=== PATIENT | female | born 1935 | race Caucasian/White ===

== ENCOUNTER 2016-06-25 13:02 | Inpatient (IN) | payer MEDICARE ==
[~2016-06-25] VITALS: Ht 167.6 cm; Wt 63.5 kg
[~2016-06-25 13:02] MED LIST: ASCO500T10 PO; ATOR40TA PO; FOLI1TAB16 PO; FURO20TA4 PO; GABA-534 PO; IVAB5TAB PO; LEFL20TA18 PO; METH2.5T PO; NORT50CA PO; PANT20TA3 PO; PRED5TAB PO; SPIR25TA4 PO; VALS80TA2 PO
[2016-06-25] MEDS ORDERED: ACETAMINOPHEN ES 500 MG TABLET PO ONE (13:30)
[2016-06-25] MEDS ORDERED: IV NS 0.9% 1,000 ML BAG IV ONE (13:30)
[2016-06-25] MEDS ORDERED: ACETAMINOPHEN ES 500 MG TABLET ONE (13:40)
[2016-06-25] MEDS ORDERED: IV NS 0.9% 2,000 ML ONE (13:41)
[2016-06-25] MEDS ORDERED: IV SET PRIMARY 1 EA INFUS.SET MC ONE (13:41)
[2016-06-25 13:46] LABS: BASOPHILS % (AUTO) 0.1 % (0.0-2.0); DIFF TOTAL % 100 %; EOSINOPHILS % (AUTO) 0.1 % (0.0-6.0); HEMATOCRIT 30 % (33-45); HEMOGLOBIN 10.1 g/dL (11.5-14.8); LYMPHOCYTES # (AUTO) 0.7 /CMM (0.8-4.8); MEAN CORPUSCULAR HEMOGLOBIN 34 PG (26.0-33.0); MEAN CORPUSCULAR HGB CONC 34 g/dl (31.0-36.0); MEAN CORPUSCULAR VOLUME 100 fL (82-100); MONOCYTES % (AUTO) 10.7 % (2.0-12.0); NEUTROPHILS # (AUTO) 7.4 /CMM (1.8-8.9); NEUTROPHILS % (AUTO) 81.1 % (43.0-81.0); PLATELET COUNT (AUTO) 88 /CMM (150-450); RED BLOOD CELL COUNT(AUTO) 3.02 MIL/uL (4.0-5.2); WHITE BLOOD COUNT (AUTO) 9.1 K/uL (4.3-11.0)
[2016-06-25 14:05] LABS: LACTIC ACID 0.8 mmol/L (0.4-2.0)
[2016-06-25 14:06] LABS: TROPONIN I 0.196 ng/mL (0.00-0.056)
[2016-06-25 14:29] LABS: INR 1.05 (0.87-1.13); PROTHROMBIN TIME 11.4 SECS (9.5-12.7)
[2016-06-25 15:01] LABS: ADD UA MICROSCOPIC NO; KETONES,URINE NEGATIVE (NEGATIVE); LEUKOCYTE ESTERASE ,URINE NEGATIVE (NEGATIVE)
[2016-06-25 15:14] LABS: CALCIUM, SERUM 8.4 mg/dL (8.5-10.1); POTASSIUM 3.4 mmol/L (3.5-5.1)
[2016-06-25 15:16] LABS: ANISOCYTOSIS 1+; BAND % (MANUAL) 8 % (0.0-5.0); LYMPHOCYTES % (MANUAL) 9 % (16-48); PLATELET ESTIMATE DECREASED; POIKILOCYTOSIS 1+
[2016-06-25 15:17] LABS: BURR CELLS 1+; OVALOCYTES 1+
[2016-06-25 15:19] LABS: ALBUMIN 3.2 g/dL (3.4-5.0); BILIRUBIN,DIRECT 0.2 mg/dL (0.0-0.2); BILIRUBIN,TOTAL 0.5 mg/dL (0.2-1.0); INDIRECT BILIRUBIN 0.3 mg/dL (0.0-1.1); TOTAL PROTEIN, SERUM 6.8 g/dL (6.4-8.2)
[2016-06-25 15:30] VITALS: BP 124/70
[2016-06-25] MEDS ORDERED: FERR-58 PO (16:51)
[2016-06-25] MEDS ORDERED: ALBU18HF2 INH (16:53)
[2016-06-25] MEDS ORDERED: LEVOFLOXACIN 750 MG /D5W 150ML 150 ML IV ONE ×2 (16:58→17:00)
[2016-06-25] MEDS ORDERED: IV SET PRIMARY PUMP SET 1 EA INFUS.SET MC ONE ×2 (16:59→18:29)
[2016-06-25] MEDS ORDERED: ACETAMINOPHEN 325 MG TABLET PO PRN (18:00)
[2016-06-25] MEDS ORDERED: MAG HYDROX/AL HYDROX/SIMETH 30 ML UDC PO PRN (18:00)
[2016-06-25] MEDS ORDERED: Z GUARD REMEDY 2 OZ OINT TP PRN (18:00)
[2016-06-25] MEDS: predniSONE 5 MG TABLET PO SCH (18:00)
[2016-06-25] MEDS ORDERED: MAGNESIUM HYDROXIDE 30 ML UDC PO PRN (18:00)
[2016-06-25] MEDS ORDERED: ONDANSETRON HCL/PF 4 MG/2 ML VIAL IVP PRN (18:00)
[2016-06-25] MEDS: ATORVASTATIN 40 MG TABLET PO SCH (18:00)
[2016-06-25] MEDS ORDERED: ZOLPIDEM TARTRATE 5 MG TABLET PO PRN (18:00)
[2016-06-25] MEDS ORDERED: HYDROCODONE/APAP 5/325MG 1 EACH TABLET PO PRN (18:00)
[2016-06-25] MEDS ORDERED: SECONDARY IV SET 1 EA INFUS.SET MC ONE (18:29)
[2016-06-25] MEDS: IV NS 0.9% 1,000 ML IV PRN (18:32)
[2016-06-25] MEDS: FOLIC ACID 1 MG TABLET PO SCH (18:35)
[2016-06-25] MEDS: PANTOPRAZOLE 40 MG VIAL IV SCH (18:35)
[2016-06-25] MEDS: FERROUS SULFATE (325 MG) 325 MG/TAB TABLET PO SCH (18:35)
[2016-06-25] MEDS: ASCORBIC ACID 500 MG TABLET PO SCH (18:35)
[2016-06-25 19:49] VITALS: BP 106/60
[2016-06-25] MEDS ORDERED: LEFLUNOMIDE 20 MG TABLET PO SCH (21:00)
[2016-06-25] MEDS: NORTRIPTYLINE HCL 25 MG CAPSULE PO SCH (21:45)
[2016-06-25] MEDS: GABAPENTIN 300 MG CAPSULE PO SCH (21:45)
[2016-06-26 04:00] VITALS: BP 147/76
[2016-06-26 06:55] VITALS: BP 122/66
[2016-06-26 07:08] LABS: BASOPHILS % (AUTO) 0.3 % (0.0-2.0); DIFF TOTAL % 100 %; EOSINOPHILS % (AUTO) 0.6 % (0.0-6.0); HEMATOCRIT 29 % (33-45); HEMOGLOBIN 9.9 g/dL (11.5-14.8); LYMPHOCYTES # (AUTO) 1.1 /CMM (0.8-4.8); LYMPHOCYTES % (AUTO) 13.9 % (20.0-44.0); MEAN CORPUSCULAR HEMOGLOBIN 34 PG (26.0-33.0); MEAN CORPUSCULAR HGB CONC 34 g/dl (31.0-36.0); MEAN CORPUSCULAR VOLUME 101 fL (82-100); MONOCYTES # (AUTO) 0.8 /CMM (0.1-1.30); MONOCYTES % (AUTO) 9.9 % (2.0-12.0); NEUTROPHILS # (AUTO) 5.7 /CMM (1.8-8.9); NEUTROPHILS % (AUTO) 75.3 % (43.0-81.0); PLATELET COUNT (AUTO) 86 /CMM (150-450); RED BLOOD CELL COUNT(AUTO) 2.91 MIL/uL (4.0-5.2); WHITE BLOOD COUNT (AUTO) 7.6 K/uL (4.3-11.0)
[2016-06-26 07:34] LABS: ALBUMIN 2.7 g/dL (3.4-5.0); BILIRUBIN,TOTAL 0.4 mg/dL (0.2-1.0); CREATININE 0.9 mg/dL (0.6-1.3); PHOSPHORUS 2.2 mg/dL (2.5-4.9); POTASSIUM 3.4 mmol/L (3.5-5.1)
[2016-06-26 08:00] VITALS: BP 137/83
[2016-06-26 08:10] LABS: ANISOCYTOSIS 1+; BAND % (MANUAL) 2 % (0.0-5.0); EOSINOPHILS % (MANUAL) 1 % (0-4); LYMPHOCYTES % (MANUAL) 17 % (16-48); PLATELET ESTIMATE DECREASED
[2016-06-26] MEDS: LEFLUNOMIDE 10 MG TABLET PO SCH (08:41)
[2016-06-26] MEDS: ATORVASTATIN 40 MG TABLET PO SCH (08:41)
[2016-06-26] MEDS: FOLIC ACID 1 MG TABLET PO SCH (08:41)
[2016-06-26] MEDS: ASCORBIC ACID 500 MG TABLET PO SCH (08:41)
[2016-06-26] MEDS: FERROUS SULFATE (325 MG) 325 MG/TAB TABLET PO SCH (08:41)
[2016-06-26] MEDS: PANTOPRAZOLE 40 MG VIAL IV SCH (08:42)
[2016-06-26] MEDS: predniSONE 5 MG TABLET PO SCH (08:45)
[2016-06-26] MEDS ORDERED: Z GUARD REMEDY 2 OZ OINT TP PRN (09:00)
[2016-06-26] MEDS ORDERED: SECONDARY IV SET 1 EA INFUS.SET MC ONE (09:11)
[2016-06-26] MEDS: methylPREDNISolone SOD SUCC 40 MG/ML VIAL IV SCH ×3 (09:16→16:53)
[2016-06-26] MEDS: Magnesium 1GM/D5W 100ML PREMIX 100 ML IV SCH ×2 (09:16→10:18)
[2016-06-26] MEDS: POTASSIUM CHLORIDE 20 MEQ TAB.PRT.SR PO SCH ×2 (09:16→10:17)
[2016-06-26] MEDS: Z GUARD REMEDY 2 OZ OINT TP SCH ×2 (10:17→16:57)
[2016-06-26 16:00] VITALS: BP 131/73
[2016-06-26] MEDS ORDERED: K PHOS NEUTRAL 250 MG TABLET PO ONE (16:30)
[2016-06-26] MEDS: CORLANOR 5 MG PO SCH (16:54)
[2016-06-26 20:00] VITALS: BP 135/80
[2016-06-26 20:46] VITALS: BP 135/80
[2016-06-26] MEDS: NORTRIPTYLINE HCL 25 MG CAPSULE PO SCH (21:34)
[2016-06-26] MEDS: GABAPENTIN 300 MG CAPSULE PO SCH (21:34)
[2016-06-27 07:09] LABS: BASOPHILS % (AUTO) 0.1 % (0.0-2.0); DIFF TOTAL % 100 %; HEMATOCRIT 33 % (33-45); LYMPHOCYTES # (AUTO) 0.8 /CMM (0.8-4.8); LYMPHOCYTES % (AUTO) 10.3 % (20.0-44.0); MEAN CORPUSCULAR HEMOGLOBIN 33 PG (26.0-33.0); MEAN CORPUSCULAR HGB CONC 33 g/dl (31.0-36.0); MEAN CORPUSCULAR VOLUME 101 fL (82-100); MONOCYTES # (AUTO) 0.7 /CMM (0.1-1.30); MONOCYTES % (AUTO) 9.3 % (2.0-12.0); NEUTROPHILS # (AUTO) 6.5 /CMM (1.8-8.9); NEUTROPHILS % (AUTO) 80.3 % (43.0-81.0); PLATELET COUNT (AUTO) 104 /CMM (150-450); RED BLOOD CELL COUNT(AUTO) 3.31 MIL/uL (4.0-5.2); WHITE BLOOD COUNT (AUTO) 8.1 K/uL (4.3-11.0)
[2016-06-27 07:10] LABS: TROPONIN I 0.069 ng/mL (0.00-0.056)
[2016-06-27 07:14] LABS: ALBUMIN 2.8 g/dL (3.4-5.0); BILIRUBIN,TOTAL 0.4 mg/dL (0.2-1.0); CALCIUM, SERUM 8.2 mg/dL (8.5-10.1); CREATININE 0.8 mg/dL (0.6-1.3); PHOSPHORUS 3.1 mg/dL (2.5-4.9); POTASSIUM 4.2 mmol/L (3.5-5.1); TOTAL PROTEIN, SERUM 6.5 g/dL (6.4-8.2)
[2016-06-27 08:00] VITALS: BP 119/68
[2016-06-27] MEDS: PANTOPRAZOLE 40 MG VIAL IV SCH (08:10)
[2016-06-27] MEDS: FERROUS SULFATE (325 MG) 325 MG/TAB TABLET PO SCH (08:11)
[2016-06-27] MEDS: ATORVASTATIN 40 MG TABLET PO SCH (08:11)
[2016-06-27] MEDS: ASCORBIC ACID 500 MG TABLET PO SCH (08:11)
[2016-06-27] MEDS: FOLIC ACID 1 MG TABLET PO SCH (08:12)
[2016-06-27] MEDS: LEFLUNOMIDE 10 MG TABLET PO SCH (08:12)
[2016-06-27] MEDS: methylPREDNISolone SOD SUCC 40 MG/ML VIAL IV SCH ×2 (08:12→12:35)
[2016-06-27] MEDS: Z GUARD REMEDY 2 OZ OINT TP SCH ×2 (08:17→16:36)
[2016-06-27] MEDS: CORLANOR 5 MG PO SCH (08:34)
[2016-06-27] MEDS ORDERED: FUROSEMIDE 20 MG TABLET PO SCH (09:00)
[2016-06-27 16:00] VITALS: BP 132/67
[2016-06-27] MEDS ORDERED: SECONDARY IV SET 1 EA INFUS.SET MC ONE (16:30)
[2016-06-27] MEDS ORDERED: LEVOFLOXACIN 750 MG /D5W 150ML 750 MG in PREMIX 1 EA IV SCH (17:00)
[2016-06-27] MEDS ORDERED: METHOTREXATE SODIUM (2.5MG) 2.5 MG TABLET PO SCH (18:00)
[2016-06-27 20:00] VITALS: BP 131/62
[2016-06-27 20:54] VITALS: BP 131/62
[2016-06-27] MEDS: IV NS 0.9% 1,000 ML IV PRN (21:45)
[2016-06-27] MEDS: NORTRIPTYLINE HCL 25 MG CAPSULE PO SCH (21:45)
[2016-06-27] MEDS: GABAPENTIN 300 MG CAPSULE PO SCH (21:45)
[2016-06-28 07:09] LABS: DIFF TOTAL % 100 %; HEMATOCRIT 31 % (33-45); HEMOGLOBIN 10.3 g/dL (11.5-14.8); LYMPHOCYTES # (AUTO) 0.9 /CMM (0.8-4.8); LYMPHOCYTES % (AUTO) 9.1 % (20.0-44.0); MEAN CORPUSCULAR HEMOGLOBIN 34 PG (26.0-33.0); MEAN CORPUSCULAR HGB CONC 34 g/dl (31.0-36.0); MEAN CORPUSCULAR VOLUME 101 fL (82-100); MONOCYTES # (AUTO) 0.9 /CMM (0.1-1.30); MONOCYTES % (AUTO) 9.2 % (2.0-12.0); NEUTROPHILS # (AUTO) 8.3 /CMM (1.8-8.9); NEUTROPHILS % (AUTO) 81.7 % (43.0-81.0); PLATELET COUNT (AUTO) 113 /CMM (150-450); RED BLOOD CELL COUNT(AUTO) 3.03 MIL/uL (4.0-5.2); WHITE BLOOD COUNT (AUTO) 10.2 K/uL (4.3-11.0)
[2016-06-28 07:25] LABS: CALCIUM, SERUM 7.6 mg/dL (8.5-10.1); CREATININE 0.8 mg/dL (0.6-1.3); PHOSPHORUS 2.7 mg/dL (2.5-4.9); POTASSIUM 4.3 mmol/L (3.5-5.1)
[2016-06-28 08:00] VITALS: BP 129/78
[2016-06-28] MEDS ORDERED: methylPREDNISolone SOD SUCC 40 MG/ML VIAL IV SCH (09:00)
[2016-06-28] MEDS: FERROUS SULFATE (325 MG) 325 MG/TAB TABLET PO SCH (10:32)
[2016-06-28] MEDS: ATORVASTATIN 40 MG TABLET PO SCH (10:32)
[2016-06-28] MEDS: LEFLUNOMIDE 10 MG TABLET PO SCH (10:34)
[2016-06-28] MEDS: FOLIC ACID 1 MG TABLET PO SCH (10:34)
[2016-06-28] MEDS: ASCORBIC ACID 500 MG TABLET PO SCH (10:34)
[2016-06-28] MEDS: Z GUARD REMEDY 2 OZ OINT TP SCH (10:35)
[2016-06-28] MEDS ORDERED: LEVO750T21 PO (10:58)
[2016-06-28] MEDS ORDERED: PRED10TA PO (11:01)
[2016-06-28] MEDS ORDERED: PRED50TA PO (11:01)
[2016-06-28] MEDS ORDERED: PRED20TA GT (11:01)
[2016-06-28] MEDS: CORLANOR 5 MG PO SCH (11:53)
[2016-06-28 16:00] VITALS: BP 123/63
== END 2016-06-28 16:00 | disposition home health service (06) | DRG 280 ==
LOC: ER 13:03 → TELE 17:10 → MED 06-26 09:45
PROVIDERS: ADMIT Internal Medicine; ATTEND Internal Medicine
DX: I21.4 Non-ST elevation (NSTEMI) myocardial infarction (principal); G93.40 Encephalopathy, unspecified; J44.0 Chronic obstructive pulmonary disease with (acute) lower respiratory infection; J20.9 Acute bronchitis, unspecified; I50.9 Heart failure, unspecified; E78.5 Hyperlipidemia, unspecified; I11.0 Hypertensive heart disease with heart failure; M06.9 Rheumatoid arthritis, unspecified; Z95.2 Presence of prosthetic heart valve; E78.00 Pure hypercholesterolemia, unspecified; E83.42 Hypomagnesemia; E87.6 Hypokalemia; I44.7 Left bundle-branch block, unspecified
CPT/HCPCS: 36415; 71010-TC; 80048-TC; 80053-TC; 80061-TC; 80076-TC; 81000-TC; 83605-TC; 83735-TC; 84100-TC; 84484-TC; 85025-TC; 85730-TC; 87040-TC; 87081-TC; 87400; 97001-TC; A4216; A4606; C9113; J1956; J2920; J3475; J7030; J7512; J8610; Z7610

== ENCOUNTER 2017-02-09 11:52 | Inpatient (IN) | payer MEDICARE ==
[~2017-02-09] VITALS: Ht 162.6 cm; Wt 52.6 kg
[~2017-02-09 11:52] MED LIST changes: +ALBU18HF2 INH; +FERR-58 PO; +LEVO750T21 PO; +PRED10TA PO; +PRED20TA GT; +PRED50TA PO; -VALS80TA2 PO
--- NOTE | 2017-02-09 11:55 | NUR ---
BIB RA 102 FROM HOME,C/O DIZZINESS,VOMITING UPON ARRIVAL, TO ER BED 14,MONITORED.
[2017-02-09] MEDS ORDERED: ONDANSETRON HCL/PF 4 MG/2 ML VIAL ONE (12:03)
[2017-02-09 12:09] LABS: BASOPHILS # (AUTO) 0.1 /CMM (0.0-0.2); EOSINOPHILS % (AUTO) 0.6 % (0.0-6.0); HEMATOCRIT 30 % (33-45); HEMOGLOBIN 10.2 g/dL (11.5-14.8); LYMPHOCYTES # (AUTO) 1.8 /CMM (0.8-4.8); LYMPHOCYTES % (AUTO) 28.8 % (20.0-44.0); MEAN CORPUSCULAR HEMOGLOBIN 34 PG (26.0-33.0); MEAN CORPUSCULAR HGB CONC 34 g/dl (31.0-36.0); MEAN CORPUSCULAR VOLUME 100 fL (82-100); MONOCYTES # (AUTO) 0.4 /CMM (0.1-1.30); NEUTROPHILS # (AUTO) 3.9 /CMM (1.8-8.9); NEUTROPHILS % (AUTO) 63.6 % (43.0-81.0); PLATELET COUNT (AUTO) 99 /CMM (150-450); RDW COEFFICIENT OF VARIATION 14.6 (11.5-15.0); RED BLOOD CELL COUNT(AUTO) 3.03 MIL/uL (4.0-5.2); WHITE BLOOD COUNT (AUTO) 6.2 K/uL (4.3-11.0)
--- NOTE | 2017-02-09 12:10 | NUR ---
SEEN BY DR AVERY,JOSE ESTABLISHED,BLOOD DRAWN FOR LABS,MEDICATED ORDERED,EKG DONE
[2017-02-09 12:19] LABS: CALCIUM, SERUM 8.1 mg/dL (8.5-10.1); CARBON DIOXIDE 26 mmol/L (21-32); CHLORIDE 104 mmol/L (98-107); GLUCOSE 153 mg/dL (74-106); SODIUM SERUM 138 mmol/L (136-145); UREA NITROGEN, BLOOD 15 mg/dL (7-18)
--- NOTE | 2017-02-09 12:20 | NUR ---
RADIOLOGY AT BEDSIDE FOR CHEST XRAY.
[2017-02-09 12:23] LABS: PROTHROMBIN TIME 10.4 SECS (9.5-12.7)
[2017-02-09 12:25] LABS: ALANINE AMINOTRANSFERASE 17 U/L (12-78); ALBUMIN 3.1 g/dL (3.4-5.0); ALKALINE PHOSPHATASE 37 U/L (46-116); ASPARTATE AMINOTRANSFERASE 26 U/L (15-37); BILIRUBIN,DIRECT 0.1 mg/dL (0.0-0.2); BILIRUBIN,TOTAL 0.4 mg/dL (0.2-1.0); TOTAL PROTEIN, SERUM 6.6 g/dL (6.4-8.2)
[2017-02-09] MEDS ORDERED: CA C1TAB95 PO (12:26)
[2017-02-09] MEDS ORDERED: MULT-1168 PO (12:26)
[2017-02-09 12:27] LABS: TROPONIN I 0.352 ng/mL (0.00-0.056)
[2017-02-09] MEDS ORDERED: IV NS 0.9% 500 ML BAG IV ONE (12:30)
[2017-02-09] MEDS ORDERED: ONDANSETRON HCL/PF 4 MG/2 ML VIAL IVP ONE (12:30)
--- NOTE | 2017-02-09 12:50 | NUR ---
PAGED EPIC CARDIOLOGY
[2017-02-09] MEDS ORDERED: CLOPIDOGREL BISULFATE 75 MG TABLET PO ONE (13:00)
[2017-02-09] MEDS ORDERED: CLOPIDOGREL BISULFATE 75 MG TABLET ONE (13:08)
[2017-02-09 13:28] LABS: EOSINOPHILS % (MANUAL) 1 % (0-4); LYMPHOCYTES % (MANUAL) 28 % (16-48); MONOCYTES % (MANUAL) 5 % (0-11.0); NEUTROPHILS % (MANUAL) 66 (42-76)
--- NOTE | 2017-02-09 14:10 | NUR ---
REPORT GIVEN TO PT AWAITING TRANSFER TO FLOOR.
--- NOTE | 2017-02-09 14:30 | NUR ---
RN NOTES ADMITTED AN 81 Y/O F FROM ER D/T SYNCOPE EPISODE, TRANSPORTED VIA STRETCHER ACCOMPANIED BY RN AND COUNTER TACKER. PT IS AWAKE ALERT ORIENTEDX3 ABLE TO COMMUNICATE NEEDS. VS TAKEN AND RECORDED. PT NOTED LOW O2 SAT ON RA, SATING 91%, PLACED PT ON O2@2LPM VIA NC. TELEBOX ATTACHED. NOTED SR WITH BBB ON TELE MONITOR. BODY CHECK DONE, NO MAJOR SKIN ISSUES, NOTED WITH SACRAL REDNESS. PHOTO TAKEN AND FILED ON CHART. DENIES ANY PAIN/DISCOMFORT. PT AMBULATORY WITH RENE WASHINGTON. ASSISTED PT TO BATHROOM WITH FWW. AT BEDSIDE, ORIENTED PT TO UNIT AND CALL LIGHT USE. SAFETY MAINTAINED. ENCOURAGED TO CALL FOR ASSISTANCE NEEDED. DR ROSARIO MADE AWARE OF ADMISSION. CALL LIGHT WITHIN REACH.
[2017-02-09 15:10] VITALS: BP 135/53
[2017-02-09 16:00] VITALS: BP 131/57
[2017-02-09] MEDS ORDERED: CORLANOR PO SCH (16:00)
[2017-02-09 16:15] LABS: THYROID STIMULATING HORMONE 0.713 uIU/mL (0.358-3.74)
[2017-02-09 17:20] LABS: MAGNESIUM 2.1 mg/dL (1.8-2.4)
[2017-02-09] MEDS: NORTRIPTYLINE HCL 25 MG CAPSULE PO SCH (17:42)
[2017-02-09] MEDS: CALCIUM CARB 600MG /VIT D 1 EACH TABLET PO SCH (17:42)
--- NOTE | 2017-02-09 18:10 | NUR ---
RN NOTES SPOKE WITH JONE, INFORMED TO BRING PATIENT MEDS. PER HE WILL BRING IT THIERNO MORNING.
--- NOTE | 2017-02-09 19:30 | NUR ---
RN OPENING NOTES: RECEIVED PT IN BED AWAKE ALOX4, VERBALLY RESPONSIVE. ON O2 VIA NC AT 2LPM. SR ON MONITOR WITH BBB AND 1ST DEGREE AVB HR AT 73 BPM. IV ACCESS ON LEFT AC INTACT AND PATNET, IVF INFUSING. CONTINENT. STEADY WITH FWW. SAFETY MEASURES ENSURED. FALL PREVENTIONS ENSURED. NO COMPLAINTS OF PAIN. SPOKE TO PATIENT'S , HARINDER, REMINDED TO BRING PATIENT'S MEDS FROM HOME. HARINDER AGREES WITH UNDERSTANDING. CALL LIGHT IN REACH. CONTINUOUSLY MONITORED.
[2017-02-09 20:00] VITALS: BP 128/61
[2017-02-09] MEDS: GABAPENTIN 300 MG CAPSULE PO SCH (21:56)
[2017-02-09] MEDS: Z GUARD REMEDY 2 OZ OINT TP SCH (21:57)
[2017-02-10] VITALS (10 sets, daily range): BP systolic 107–149; BP diastolic 55–83
[2017-02-10] MEDS: IV D5/ 0.9% NACL 1,000 ML IV PRN ×2 (00:21→13:17)
--- NOTE | 2017-02-10 06:48 | NUR ---
RN CLOSING NOTES; PATIENT REMAINED IN BED ASLEEP NOT IN DISTRESS. REMAINED SINUS RHYTHM ON MONITOR. IV ACCESS INTACT, IVF INFUSING. SAFETY MEASURES AND SKIN CARE ENSURED. FALL PREVENTION ENSURED. TO ENDORSE TO AM SHIFT RN.
--- NOTE | 2017-02-10 07:10 | NUR ---
RN INITIAL NOTE PATIENT RECEIVED IN BED RESTING COMFORTABLY. NO S/S OF PAIN OR DISCOMFORT. RESPIRATIONS ARE EVEN AND UNLABORED. NO S/S OF RESPIRATORY DISTRESS OR SOB. SATING WELL ON 2L NASAL CANULA. SINUS RHYTHM ON TELE MONITOR. IV SITE FLUSHED, PATENT. SKIN IS WARM AND DRY TO TOUCH. SAFETY PRECAUTIONS IMPLEMENTED. BED IN LOCKED, LOW POSITION WITH TWO SIDE RAILS UP. WILL MONITOR CLOSELY.
[2017-02-10 07:30] LABS: BASOPHILS % (AUTO) 0.4 % (0.0-2.0); EOSINOPHILS % (AUTO) 0.7 % (0.0-6.0); HEMATOCRIT 28 % (33-45); HEMOGLOBIN 9.3 g/dL (11.5-14.8); LYMPHOCYTES # (AUTO) 1.2 /CMM (0.8-4.8); LYMPHOCYTES % (AUTO) 22.6 % (20.0-44.0); MEAN CORPUSCULAR HEMOGLOBIN 33 PG (26.0-33.0); MEAN CORPUSCULAR HGB CONC 33 g/dl (31.0-36.0); MEAN CORPUSCULAR VOLUME 102 fL (82-100); MONOCYTES # (AUTO) 0.2 /CMM (0.1-1.30); MONOCYTES % (AUTO) 4.4 % (2.0-12.0); NEUTROPHILS # (AUTO) 3.8 /CMM (1.8-8.9); NEUTROPHILS % (AUTO) 71.9 % (43.0-81.0); PLATELET COUNT (AUTO) 82 /CMM (150-450); RDW COEFFICIENT OF VARIATION 15.7 (11.5-15.0); WHITE BLOOD COUNT (AUTO) 5.3 K/uL (4.3-11.0)
[2017-02-10 07:34] LABS: ALANINE AMINOTRANSFERASE 15 U/L (12-78); ALBUMIN 2.5 g/dL (3.4-5.0); ALKALINE PHOSPHATASE 27 U/L (46-116); ASPARTATE AMINOTRANSFERASE 18 U/L (15-37); BILIRUBIN,TOTAL 0.2 mg/dL (0.2-1.0); CALCIUM, SERUM 7.7 mg/dL (8.5-10.1); CARBON DIOXIDE 27 mmol/L (21-32); CHLORIDE 110 mmol/L (98-107); CREATININE 0.8 mg/dL (0.6-1.3); GLUCOSE 107 mg/dL (74-106); MAGNESIUM 1.8 mg/dL (1.8-2.4); PHOSPHORUS 3.1 mg/dL (2.5-4.9); POTASSIUM 4.3 mmol/L (3.5-5.1); SODIUM SERUM 143 mmol/L (136-145); TOTAL PROTEIN, SERUM 5.8 g/dL (6.4-8.2); UREA NITROGEN, BLOOD 10 mg/dL (7-18)
[2017-02-10 07:36] LABS: TROPONIN I 0.225 ng/mL (0.00-0.056)
[2017-02-10] MEDS: predniSONE 5 MG TABLET PO SCH (08:28)
[2017-02-10] MEDS: ASCORBIC ACID 500 MG TABLET PO SCH (08:28)
[2017-02-10] MEDS: ATORVASTATIN 40 MG TABLET PO SCH (08:28)
[2017-02-10] MEDS: MULTIPLE VIT (LYCOPENE/FA/MV,CA,IRON,MIN/LUT)1 TAB PO SCH (08:28)
[2017-02-10] MEDS: CALCIUM CARB 600MG /VIT D 1 EACH TABLET PO SCH (08:28)
[2017-02-10] MEDS: FOLIC ACID 1 MG TABLET PO SCH (08:28)
[2017-02-10] MEDS: Z GUARD REMEDY 2 OZ OINT TP SCH ×2 (08:29→21:28)
[2017-02-10] MEDS: LEFLUNOMIDE 10 MG TABLET PO SCH (08:31)
[2017-02-10 09:52] LABS: LYMPHOCYTES % (MANUAL) 20 % (16-48); MONOCYTES % (MANUAL) 3 % (0-11.0); NEUTROPHILS % (MANUAL) 77 (42-76)
[2017-02-10] MEDS: NORTRIPTYLINE HCL 25 MG CAPSULE PO SCH (17:05)
--- NOTE | 2017-02-10 19:25 | NUR ---
MS/RN OPENING NOTES PT ASLEEP, ON 2LPM O2 VIA NC, BREATHING EVEN AND UNLABORED. NO S/S OF DISTRESS OR PAIN NOTED. AT BEDSIDE. IV TO LAC PATENT AND INTACT RUNNING IVF ORDERED. BED IN LOW/LOCKED POSITION WITH CALL LIGHT IN REACH. SIDE RAILS UPX2. PT FOR POSSIBLE DC TOMORROW. WILL CONTINUE TO MONITOR
[2017-02-10] MEDS: GABAPENTIN 300 MG CAPSULE PO SCH (21:26)
[2017-02-11 04:00] VITALS: BP 136/61
[2017-02-11 07:18] LABS: BASOPHILS % (AUTO) 0.5 % (0.0-2.0); EOSINOPHILS # (AUTO) 0.1 /CMM (0.0-0.7); EOSINOPHILS % (AUTO) 1.2 % (0.0-6.0); HEMATOCRIT 33 % (33-45); HEMOGLOBIN 10.8 g/dL (11.5-14.8); LYMPHOCYTES # (AUTO) 1.6 /CMM (0.8-4.8); LYMPHOCYTES % (AUTO) 26.2 % (20.0-44.0); MEAN CORPUSCULAR HEMOGLOBIN 33 PG (26.0-33.0); MEAN CORPUSCULAR HGB CONC 33 g/dl (31.0-36.0); MEAN CORPUSCULAR VOLUME 101 fL (82-100); MONOCYTES # (AUTO) 0.5 /CMM (0.1-1.30); MONOCYTES % (AUTO) 8.6 % (2.0-12.0); NEUTROPHILS # (AUTO) 3.8 /CMM (1.8-8.9); NEUTROPHILS % (AUTO) 63.5 % (43.0-81.0); PLATELET COUNT (AUTO) 99 /CMM (150-450); RDW COEFFICIENT OF VARIATION 15.7 (11.5-15.0); RED BLOOD CELL COUNT(AUTO) 3.25 MIL/uL (4.0-5.2); WHITE BLOOD COUNT (AUTO) 5.9 K/uL (4.3-11.0)
--- NOTE | 2017-02-11 07:40 | NUR ---
MS/RN CLOSING NOTES PT ASLEEP, EASILY AROUSABLE TO NAME. ON 2LPM O2 VIA NC, BREATHING EVEN AND UNLABORED. NO S/S OF DISTRESS, DENIES PAIN. WALKER AT BEDSIDE. IV TO RIGHT HAND PATENT AND INTACT. ALL NEEDS MET AND ATTENDED. MADE PT COMFORTABLE THROUGHOUT SHIFT. ENDORSED TO AM SHIFT BENNY.
--- NOTE | 2017-02-11 07:43 | NUR ---
RN OPENING NOTES RECEIVED PT. IN BED AWAKE, A&OX3. BREATHING UNLABORED ON OXYGEN 2L/MIN WITH NASAL CANNULA. NO S/S OF ACUTE DISTRESS. IV FLUIDS AT BEDSIDE. RIGHT HAND GAUGE 22 IV ACCESS. BED IS IN LOW POSITION, 2 SIDE RAILS UP, AND CALL LIGHT IS WITHIN REACH. WILL CONTINUE TO ASSESS AND MONITOR.
[2017-02-11 08:00] VITALS: BP_SYST 101; BP_SYST 135; BP_SYST 141; BP_DIAS 63; BP_DIAS 75; BP_DIAS 79
[2017-02-11 08:05] LABS: CALCIUM, SERUM 8.6 mg/dL (8.5-10.1); CARBON DIOXIDE 28 mmol/L (21-32); CHLORIDE 106 mmol/L (98-107); CREATININE 0.9 mg/dL (0.6-1.3); GLUCOSE 86 mg/dL (74-106); MAGNESIUM 1.7 mg/dL (1.8-2.4); PHOSPHORUS 3.1 mg/dL (2.5-4.9); POTASSIUM 4.1 mmol/L (3.5-5.1); SODIUM SERUM 141 mmol/L (136-145); UREA NITROGEN, BLOOD 11 mg/dL (7-18)
[2017-02-11 08:26] LABS: LYMPHOCYTES % (MANUAL) 27 % (16-48); MONOCYTES % (MANUAL) 6 % (0-11.0); NEUTROPHILS % (MANUAL) 67 (42-76)
[2017-02-11] MEDS: ASCORBIC ACID 500 MG TABLET PO SCH (08:40)
[2017-02-11] MEDS: predniSONE 5 MG TABLET PO SCH (08:40)
[2017-02-11] MEDS: LEFLUNOMIDE 10 MG TABLET PO SCH (08:40)
[2017-02-11] MEDS: FOLIC ACID 1 MG TABLET PO SCH (08:40)
[2017-02-11] MEDS: MULTIPLE VIT (LYCOPENE/FA/MV,CA,IRON,MIN/LUT)1 TAB PO SCH (08:40)
[2017-02-11] MEDS: ATORVASTATIN 40 MG TABLET PO SCH (08:40)
[2017-02-11] MEDS: CALCIUM CARB 600MG /VIT D 1 EACH TABLET PO SCH (08:40)
[2017-02-11] MEDS: Z GUARD REMEDY 2 OZ OINT TP SCH (08:41)
[2017-02-11] MEDS: Magnesium 1GM/D5W 100ML PREMIX 100 ML IV SCH ×2 (09:43→11:07)
[2017-02-11 12:00] VITALS: BP_SYST 105; BP_SYST 124; BP_SYST 129; BP_DIAS 68; BP_DIAS 71; BP_DIAS 74
[2017-02-11] MEDS ORDERED: ASPI-605 PO (13:43)
--- NOTE | 2017-02-11 15:23 | NUR ---
RN NOTES PICTURE WAS TAKEN AND PLACED IN CHART BEFORE DISCHARGE.
--- NOTE | 2017-02-11 15:24 | NUR ---
RN NOTES DISCHARGE PT. LEFT HOME WITH ALONG SIDE IN WHEELCHAIR IN MEDICALLY STABLE CONDITION. PT. WAS PROVIDED DISCHARGE INSTRUCTIONS, PT. VERBALIZED UNDERSTANDING, AND SIGNED PAPERS. PT. BELONGINGS LIST WAS CHECKED AND SIGNED. IV AND ID BAND WAS REMOVED WITHOUT COMPLICATIONS.
[2017-02-13] MEDS ORDERED: METHOTREXATE SODIUM (2.5MG) 2.5 MG TABLET PO SCH (09:00)
== END 2017-02-11 15:22 | disposition home health service (06) | DRG 280 ==
LOC: ER 11:53 → TELE1 13:55 → MEDSG1 02-10 11:17
PROVIDERS: ADMIT Internal Medicine; ATTEND Internal Medicine
DX: I21.4 Non-ST elevation (NSTEMI) myocardial infarction (principal); E43 Unspecified severe protein-calorie malnutrition; N17.0 Acute kidney failure with tubular necrosis; I13.0 Hypertensive heart and chronic kidney disease with heart failure and stage 1 through stage 4 chronic kidney disease, or unspecified chronic kidney disease; L89.151 Pressure ulcer of sacral region, stage 1; I50.9 Heart failure, unspecified; E86.0 Dehydration; E88.09 Other disorders of plasma-protein metabolism, not elsewhere classified; Z68.1 Body mass index [BMI] 19.9 or less, adult; G62.9 Polyneuropathy, unspecified; D63.8 Anemia in other chronic diseases classified elsewhere; I44.7 Left bundle-branch block, unspecified; M06.9 Rheumatoid arthritis, unspecified; E78.5 Hyperlipidemia, unspecified; N18.9 Chronic kidney disease, unspecified; Z95.2 Presence of prosthetic heart valve; I70.0 Atherosclerosis of aorta; R55 Syncope and collapse; M62.50 Muscle wasting and atrophy, not elsewhere classified, unspecified site
CPT/HCPCS: 36415; 71010-TC; 80048-TC; 80053-TC; 80061-TC; 80076-TC; 82306; 82728-TC; 83540-TC; 83735-TC; 84100-TC; 84439-TC; 84443-TC; 84484-TC; 85025-TC; 85730-TC; 86850-TC; 87081-TC; 93307-TC; A4606; J2405; J3475; J7040; J7512; Z7610

== ENCOUNTER 2017-03-25 18:21 | Inpatient (IN) | payer MEDICARE ==
[~2017-03-25] VITALS: Ht 162.6 cm; Wt 54.9 kg
[~2017-03-25 18:21] MED LIST changes: -ALBU18HF2 INH; +ASPI-605 PO; +CA C1TAB95 PO; -FERR-58 PO; -FURO20TA4 PO; -LEVO750T21 PO; +MULT-1168 PO; -PANT20TA3 PO; -PRED10TA PO; -PRED20TA GT; -PRED50TA PO; -SPIR25TA4 PO
--- NOTE | 2017-03-25 18:41 | NUR ---
PATIENT TO ED DT CONGESTION AND DRY COUGH X 1 WEEK. PATIENT IS AAO4. APPEARS IN NO APPARENT DISTRESS. RESPIRATION EVEN AND UNLABORED. SKIN IS WARM TO TO TOUCH AND NON DIAPHORETIC. PT IS AFEBRILE. VSS
--- NOTE | 2017-03-25 19:03 | NUR ---
IV ACCESSED TO [facility] 20. BLOOD SAMPLE SENT TO LAB. INFLUENZA SWAB DONE
[2017-03-25 19:10] LABS: BASOPHILS % (AUTO) 0.5 % (0.0-2.0); EOSINOPHILS % (AUTO) 0.2 % (0.0-6.0); HEMATOCRIT 36 % (33-45); HEMOGLOBIN 11.7 g/dL (11.5-14.8); LYMPHOCYTES # (AUTO) 0.9 /CMM (0.8-4.8); LYMPHOCYTES % (AUTO) 12.6 % (20.0-44.0); MEAN CORPUSCULAR HEMOGLOBIN 33 PG (26.0-33.0); MEAN CORPUSCULAR HGB CONC 33 g/dl (31.0-36.0); MEAN CORPUSCULAR VOLUME 102 fL (82-100); MONOCYTES # (AUTO) 0.6 /CMM (0.1-1.30); MONOCYTES % (AUTO) 8.1 % (2.0-12.0); NEUTROPHILS # (AUTO) 5.7 /CMM (1.8-8.9); NEUTROPHILS % (AUTO) 78.6 % (43.0-81.0); PLATELET COUNT (AUTO) 189 /CMM (150-450); RDW COEFFICIENT OF VARIATION 15.8 (11.5-15.0); RED BLOOD CELL COUNT(AUTO) 3.49 MIL/uL (4.0-5.2); WHITE BLOOD COUNT (AUTO) 7.2 K/uL (4.3-11.0)
[2017-03-25 19:20] LABS: CALCIUM, SERUM 8.5 mg/dL (8.5-10.1); CARBON DIOXIDE 27 mmol/L (21-32); CHLORIDE 102 mmol/L (98-107); CREATININE 0.9 mg/dL (0.6-1.3); GLUCOSE 134 mg/dL (74-106); POTASSIUM 4.4 mmol/L (3.5-5.1); SODIUM SERUM 137 mmol/L (136-145); UREA NITROGEN, BLOOD 14 mg/dL (7-18)
[2017-03-25 19:27] LABS: INR 0.99 (0.87-1.13); PROTHROMBIN TIME 10.3 SECS (9.5-12.7); TROPONIN I 0.066 ng/mL (0.00-0.056)
--- NOTE | 2017-03-25 19:29 | NUR ---
REPORT GIVEN TO JUSTYNA RYAN FOR BENNY
[2017-03-25 19:32] LABS: ALANINE AMINOTRANSFERASE 18 U/L (12-78); ALBUMIN 3.7 g/dL (3.4-5.0); ALKALINE PHOSPHATASE 35 U/L (46-116); ASPARTATE AMINOTRANSFERASE 24 U/L (15-37); B-TYPE NATRIURETIC PEPTIDE 10059 PG/ML (0-125); BILIRUBIN,DIRECT 0.2 mg/dL (0.0-0.2); BILIRUBIN,TOTAL 0.5 mg/dL (0.2-1.0); TOTAL PROTEIN, SERUM 7.7 g/dL (6.4-8.2)
--- NOTE | 2017-03-25 19:50 | NUR ---
XRAY AT BEDSIDE
[2017-03-25] MEDS ORDERED: NITROGLYCERIN PACKET 1 GM PACKET TD ONE (20:30)
[2017-03-25] MEDS ORDERED: FUROSEMIDE 40 MG/4 ML VIAL IV ONE (20:30)
--- NOTE | 2017-03-25 21:00 | NUR ---
TELE/RN NOTES PATIENT IS A NEW ADMITTED 81 YO FEMALE W/ ADMITTING DX OF CHF.CAME FROM HOME AND LIVES W/ , ALERT, ORIENTED X3, AMBULATES W. SUPERVISION. COOPERATIVE TO CARE , NO PAIN VERBALIZED, BUT STATED IS HUNGRY. SKIN WARM TO TOUCH, REPORTED NO BM FOR 2 DAYS. TELE READING AT SR 82 W/ LEFT BUNDLE BRANCH BLOCK. IV ON RIGHT AC GAUGE 20. BED ALARM ON FOR SAFETY PATIENT GETS UP UNASSISTED.CALL LIGHTS WITHIN REACH. ROOM ORIENTATION, BELONGINGS CHECK. MD MEDICATION LIST RECONCILED. SAFETY INTERVENTION PROVIDED.
[2017-03-25] MEDS ORDERED: Z GUARD REMEDY 2 OZ OINT TP PRN (22:30)
[2017-03-25] MEDS ORDERED: MAG HYDROX/AL HYDROX/SIMETH 30 ML UDC PO PRN (22:30)
[2017-03-25] MEDS ORDERED: HYDROCODONE/APAP 5/325MG 1 EACH TABLET PO PRN (22:30)
[2017-03-25] MEDS ORDERED: ALBUTEROL FS 2.5 MG/0.5 ML VIAL.NEB NEB PRN (22:30)
[2017-03-25] MEDS ORDERED: ONDANSETRON HCL/PF 4 MG/2 ML VIAL IVP PRN (22:30)
[2017-03-25] MEDS ORDERED: ZOLPIDEM TARTRATE 5 MG TABLET PO PRN (22:30)
[2017-03-25] MEDS ORDERED: IPRATROPIUM NEB FS 0.5 MG/2.5 ML AMPUL.NEB NEB PRN (22:30)
[2017-03-25] MEDS ORDERED: ACETAMINOPHEN 325 MG TABLET PO PRN (22:30)
[2017-03-26] VITALS (8 sets, daily range): BP systolic 118–149; BP diastolic 62–88
[2017-03-26] MEDS ORDERED: ALBUTEROL FS 2.5 MG/0.5 ML VIAL.NEB NEB ONE (01:00)
[2017-03-26] MEDS ORDERED: IPRATROPIUM NEB FS 0.5 MG/2.5 ML AMPUL.NEB NEB ONE (01:00)
[2017-03-26] MEDS: methylPREDNISolone SOD SUCC 40 MG/ML VIAL IV SCH ×4 (01:24→17:39)
--- NOTE | 2017-03-26 01:29 | NUR ---
ms/rn notes patient had 1 bm, keep warm w/ blankets. gave medication at 0100 for inflamation via iv. will infrom RT for breathing tx order.
--- NOTE | 2017-03-26 06:40 | NUR ---
TELE/RN CLOSING NOTES PATIENT ALERT, ORIENTED X3, ABLE TO VERBALIZE NEEDS AT ALL TIMES, ASSISTED TO BATHROOM FOR SAFETY, RESPIRATIONS EVEN , LUNG SOUNDS W/ RONCHI HEART, BREATHING TX PROVIDED BY RT, HOB ELEVATED, KEEP WARM, OXYGEN AT 97% IN ROOM AIR NO PAIN REPORTED AND OBSERVED, BEDS ALARM ON, BED IN LOCK POSITION. OFFFERED AND PROVIDED FLUID. WILL ENDORSE TO AM RE BENNY.
[2017-03-26 07:21] LABS: BASOPHILS % (AUTO) 0.1 % (0.0-2.0); HEMATOCRIT 33 % (33-45); HEMOGLOBIN 11.2 g/dL (11.5-14.8); LYMPHOCYTES # (AUTO) 0.5 /CMM (0.8-4.8); LYMPHOCYTES % (AUTO) 8.7 % (20.0-44.0); MEAN CORPUSCULAR HEMOGLOBIN 34 PG (26.0-33.0); MEAN CORPUSCULAR HGB CONC 33 g/dl (31.0-36.0); MEAN CORPUSCULAR VOLUME 102 fL (82-100); MONOCYTES # (AUTO) 0.2 /CMM (0.1-1.30); MONOCYTES % (AUTO) 3.1 % (2.0-12.0); NEUTROPHILS # (AUTO) 4.7 /CMM (1.8-8.9); NEUTROPHILS % (AUTO) 88.1 % (43.0-81.0); PLATELET COUNT (AUTO) 154 /CMM (150-450); RDW COEFFICIENT OF VARIATION 17.1 (11.5-15.0); RED BLOOD CELL COUNT(AUTO) 3.28 MIL/uL (4.0-5.2); WHITE BLOOD COUNT (AUTO) 5.4 K/uL (4.3-11.0)
--- NOTE | 2017-03-26 07:33 | NUR ---
VACUUM WORKER OPENING NOTE RECEIVED SBAR REPORT AT THE BEDSIDE. PATIENT IS IN BED A/O X4, AWAKE AND RESPONSIVE. FORGETFUL OF SPECIFIC DATES. PERRLA. PRESENTS WITH EVEN, UNLABORED BREATHING. SPO2 97%RA. RHONCHI AUSCULTATED THROUGHOUT BILATERAL LUNGS. PRESENTS WITH DRY COUGH. DENIES CHEST PAIN/DISCOMFORT. EXTERNAL MONITOR READING SR 80. PATIENT IS ASSISTED TO THE BATHROOM AND BACK TO THE BED. BED IS LOCKED, IN LOWEST POSITION, SIDE RAILS UP X2, BED ALARM ON. PATIENT IN HIGH ARITA'S POSITION. ALL NEEDS ATTENDED TO. CALL LIGHT IN REACH. PATIENT EDUCATED TO CALL FOR ASSISTANCE AND VERBALIZED UNDERSTANDING OF THE TEACHINGS. WILL CONTINUE TO MONITOR/ASSESS THROUGHOUT THE SHIFT.
[2017-03-26 07:39] LABS: CALCIUM, SERUM 8.3 mg/dL (8.5-10.1); CARBON DIOXIDE 26 mmol/L (21-32); CHLORIDE 100 mmol/L (98-107); CREATININE 0.9 mg/dL (0.6-1.3); GLUCOSE 150 mg/dL (74-106); MAGNESIUM 1.8 mg/dL (1.8-2.4); PHOSPHORUS 3.7 mg/dL (2.5-4.9); POTASSIUM 3.9 mmol/L (3.5-5.1); SODIUM SERUM 136 mmol/L (136-145); UREA NITROGEN, BLOOD 13 mg/dL (7-18)
[2017-03-26] MEDS ORDERED: LEFLUNOMIDE 20 MG TABLET PO SCH (09:00)
[2017-03-26] MEDS ORDERED: predniSONE 5 MG TABLET PO SCH (09:00)
[2017-03-26] MEDS ORDERED: FUROSEMIDE 20 MG/2 ML VIAL IV SCH (09:00)
[2017-03-26 09:23] LABS: CHOLESTEROL 154 mg/dL (<200); HDL CHOLESTEROL 61 mg/dL (40-60); LDL 80 mg/dL (0-99); TRIGLYCERIDES 48 mg/dL (30-150)
--- NOTE | 2017-03-26 09:40 | NUR ---
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 THE MEDICATION WITHDREW LATER FROM OMNICE. MEDICATION WAS ADMINISTERED TO THE PATIENT PRESCRIBED.
[2017-03-26] MEDS: CALCIUM CITRATE(CITRACAL) /VITAMIN D 1 TAB TABLET PO SCH (09:57)
[2017-03-26] MEDS: FOLIC ACID 1 MG TABLET PO SCH (09:57)
[2017-03-26] MEDS: MULTIPLE VIT (LYCOPENE/FA/MV,CA,IRON,MIN/LUT)1 TAB PO SCH (09:57)
[2017-03-26] MEDS: ASPIRIN EC 81 MG TABLET.DR PO SCH (09:57)
[2017-03-26] MEDS: ASCORBIC ACID 500 MG TABLET PO SCH (09:58)
[2017-03-26] MEDS: ATORVASTATIN 40 MG TABLET PO SCH (10:01)
[2017-03-26] MEDS: FUROSEMIDE 20 MG/2 ML VIAL IV SCH (10:01)
[2017-03-26] MEDS ORDERED: LEVOFLOXACIN (500MG) 500 MG TABLET PO ONE (12:30)
[2017-03-26] MEDS ORDERED: NORTRIPTYLINE HCL 25 MG CAPSULE PO SCH (18:00)
--- NOTE | 2017-03-26 19:00 | NUR ---
NURSING: Recieved patient alert and orientated. Reviewed the call light with her and reminded her Not to get OOB with out the nurse to assist her for safety. Instructed the nurse will make rounds Q1 hour. Bed alarm on. I did ambulated her to the bathroom, steady on her legs I was stand by assist. She voided washed her hands and returned to bed. She smiled and was polite.
--- NOTE | 2017-03-26 19:43 | NUR ---
INSTRUCTOR TECHNICAL TRAINING CLOSING NOTE GAVE SBAR REPORT TO THE ASSOCIATION EXECUTIVE NURSE AT THE BEDSIDE. PATIENT IS IN BED A/O X4, AWAKE AND RESPONSIVE. PERRLA. PRESENTS WITH EVEN, UNLABORED BREATHING. SPO2 96%RA. DENIES CHEST PAIN/DISCOMFORT. EXTERNAL MONITOR READING ST 99. PATIENT IS ASSISTED TO THE BATHROOM AND BACK TO THE BED. BED IS LOCKED, IN LOWEST POSITION, SIDE RAILS UP X2, BED ALARM ON. PATIENT IN HIGH ARITA'S POSITION. ALL NEEDS ATTENDED TO. CALL LIGHT IN REACH. PATIENT EDUCATED TO CALL FOR ASSISTANCE AND VERBALIZED UNDERSTANDING OF THE TEACHINGS. ENDORSED TO THE ASSOCIATION EXECUTIVE NURSE FOR BENNY.
[2017-03-26] MEDS ORDERED: GABAPENTIN 300 MG CAPSULE PO SCH (22:00)
--- NOTE | 2017-03-26 22:00 | NUR ---
RETAIL SALES CONSULTANT INITIAL NOTES RECEIVED REPORT FROM DALY. PT IS IN BED RESTING. NO SIGNS OF SOB OR DISTRESS. BREATHING EVENLY AND UNLABORED ON RA. IV ACCESS IS INTACT AND PATENT. BED IS IN LOW AND LOCKED POSITION, CALL LIGHT WITHIN REACH. BED ALARM ON. WILL CONTINUE TO MONITOR
[2017-03-27] VITALS: BP_SYST 134; BP_DIAS 71; BP_DIAS 77
[2017-03-27 04:00] VITALS: BP_SYST 138; BP_DIAS 73; BP_DIAS 81
--- NOTE | 2017-03-27 06:43 | NUR ---
LIQUID FLOOR AND WALL APPLIER CLOSING NOTES PT IS IN BED SLEEPING. NO SIGNS OF SOB OR DISTRESS. BREATHING EVENLY AND UNLABORED ON RA. IV ACCESS IS INTACT. NPO STATUS MAINTAINED. TELE MONITOR SHOWING SR-68. PLANNED EGD FOR TODAY. ALL NEEDS WERE ANTICIPATED AND MET. WILL ENDORSE TO DAY SHIFT
--- NOTE | 2017-03-27 06:50 | NUR ---
CRITICAL VALUE LAB CALLED TO REPORT CRITICAL VALUE HGB- 6.2 HCT-19. ATTEMPTED TO CONTACT EKTA, AWAITING CALL BACK Addendum: 03/27/17 at 0725 by KISHA HAYES DISREGARD NOTE. CRITICAL VALUE FOR PT IN 304-1
[2017-03-27 06:55] LABS: ALANINE AMINOTRANSFERASE 23 U/L (12-78); ALBUMIN 3.1 g/dL (3.4-5.0); ALKALINE PHOSPHATASE 31 U/L (46-116); ASPARTATE AMINOTRANSFERASE 19 U/L (15-37); BILIRUBIN,TOTAL 0.5 mg/dL (0.2-1.0); CALCIUM, SERUM 8.5 mg/dL (8.5-10.1); CARBON DIOXIDE 31 mmol/L (21-32); CHLORIDE 100 mmol/L (98-107); CREATININE 0.9 mg/dL (0.6-1.3); GLUCOSE 123 mg/dL (74-106); MAGNESIUM 1.9 mg/dL (1.8-2.4); PHOSPHORUS 4.4 mg/dL (2.5-4.9); POTASSIUM 4.3 mmol/L (3.5-5.1); SODIUM SERUM 135 mmol/L (136-145); TOTAL PROTEIN, SERUM 6.9 g/dL (6.4-8.2); UREA NITROGEN, BLOOD 20 mg/dL (7-18)
[2017-03-27 06:56] LABS: TROPONIN I 0.058 ng/mL (0.00-0.056)
[2017-03-27 06:58] LABS: HEMATOCRIT 35 % (33-45); HEMOGLOBIN 11.3 g/dL (11.5-14.8); LYMPHOCYTES # (AUTO) 0.7 /CMM (0.8-4.8); LYMPHOCYTES % (AUTO) 7.3 % (20.0-44.0); MEAN CORPUSCULAR HEMOGLOBIN 33 PG (26.0-33.0); MEAN CORPUSCULAR HGB CONC 32 g/dl (31.0-36.0); MEAN CORPUSCULAR VOLUME 102 fL (82-100); MONOCYTES % (AUTO) 10.1 % (2.0-12.0); NEUTROPHILS # (AUTO) 8.3 /CMM (1.8-8.9); NEUTROPHILS % (AUTO) 82.6 % (43.0-81.0); PLATELET COUNT (AUTO) 166 /CMM (150-450); RDW COEFFICIENT OF VARIATION 16.7 (11.5-15.0)
--- NOTE | 2017-03-27 07:22 | NUR ---
MS RN OPENING NOTE RECEIVED SBAR REPORT AT THE BEDSIDE. PATIENT IS IN BED A/O X4, AWAKE AND RESPONSIVE. FORGETFUL OF SPECIFIC DATES. PERRLA. PRESENTS WITH EVEN, UNLABORED BREATHING. SPO2 96%RA. RHONCHI AUSCULTATED THROUGHOUT BILATERAL LUNGS. DENIES CHEST PAIN/DISCOMFORT. PATIENT IS ASSISTED TO THE BATHROOM AND BACK TO THE BED. BED IS LOCKED, IN LOWEST POSITION, SIDE RAILS UP X2, BED ALARM ON. PATIENT IN HIGH ARITA'S POSITION. ALL NEEDS ATTENDED TO. CALL LIGHT IN REACH. PATIENT EDUCATED TO CALL FOR ASSISTANCE AND VERBALIZED UNDERSTANDING OF THE TEACHINGS. WILL CONTINUE TO MONITOR/ASSESS THROUGHOUT THE SHIFT.
[2017-03-27] MEDS ORDERED: METHOTREXATE SODIUM (2.5MG) 2.5 MG TABLET PO SCH (07:30)
--- NOTE | 2017-03-27 07:37 | NUR ---
MS RN NOTE SUPERVISOR CELL MAINTENANCE AT THE BEDSIDE.
[2017-03-27 08:00] VITALS: BP 121/69
[2017-03-27 08:10] VITALS: BP 121/69
[2017-03-27] MEDS ORDERED: FUROSEMIDE 20 MG TABLET PO SCH (09:00)
[2017-03-27] MEDS ORDERED: POTASSIUM CHLORIDE 20 MEQ TAB.PRT.SR PO SCH (09:00)
[2017-03-27] MEDS: ATORVASTATIN 40 MG TABLET PO SCH (09:00)
[2017-03-27] MEDS ORDERED: LEFLUNOMIDE 10 MG TABLET PO SCH (09:00)
--- NOTE | 2017-03-27 09:30 | NUR ---
MS RN NOTE DR ENG AT THE BEDSIDE. ASKED DR ENG IF THE PATIENT SHOULD RECEIVE 20 MG PO LASIX WITH PREVIOUSLY PRESCRIBED IV LASIX AT THE SAME TIME. PER DR ENG HOLD THE PO LASIX AT THIS TIME. DR ENG DISCUSSED PATIENT'S DISCHARGE TODAY. AWAITING FOR A D/C ORDER.
[2017-03-27] MEDS: FUROSEMIDE 20 MG/2 ML VIAL IV SCH (09:37)
[2017-03-27] MEDS: FOLIC ACID 1 MG TABLET PO SCH (09:38)
[2017-03-27] MEDS: MULTIPLE VIT (LYCOPENE/FA/MV,CA,IRON,MIN/LUT)1 TAB PO SCH (09:38)
[2017-03-27] MEDS: ASPIRIN EC 81 MG TABLET.DR PO SCH (09:38)
[2017-03-27] MEDS: methylPREDNISolone SOD SUCC 40 MG/ML VIAL IV SCH ×2 (09:38→13:50)
[2017-03-27] MEDS: ASCORBIC ACID 500 MG TABLET PO SCH (09:39)
[2017-03-27] MEDS: CALCIUM CITRATE(CITRACAL) /VITAMIN D 1 TAB TABLET PO SCH (09:55)
[2017-03-27] MEDS ORDERED: LEVOFLOXACIN (250MG) 250 MG TABLET PO SCH (13:00)
--- NOTE | 2017-03-27 15:52 | NUR ---
MS RN NOTE DR. ENG AT THE BEDSIDE ASSESSING THE PATIENT. DISCHARGE ORDER RECEIVED. WILL PREPARE THE PAPERWORK AND EDUCATED THE PATIENT/SPOUSE.
--- NOTE | 2017-03-27 16:37 | NUR ---
MS LAMINATING PRESS OPERATOR EDUCATION NOTE PATIENT/SPOUSE PROVIDED WITH DISCHARGE EDUCATION VIA TEACH BACK METHOD. PATIENT/SPOUSE VERBALIZED FULL UNDERSTANDING OF DISCHARGE EDUCATION MATERIALS. DISCHARGE MATERIALS/REFERRALS/MEDICATION ORDERS/SUMMARY PROVIDED TO PATIENT. ALL BELONGINGS ARE ACCOUNTED FOR. BELONGING FORM IS SIGNED.
--- NOTE | 2017-03-27 16:50 | NUR ---
MS RN NOTE IV CATHETER REMOVED. CATHETER TIP IS INTACT. NO S/S OF INFECTION. OCCLUSIVE DRESSING APPLIED. NO BLEEDING. PATIENT TOLERATED THE PROCEDURE WELL.
--- NOTE | 2017-03-27 17:06 | NUR ---
MS RN DISCHARGING NOTE PATIENT IS A/O X4, STABLE, AMBULATORY W ASSIST. VS WNL. PERRLA. CHEST RISING EQUALLY BILATERALLY, SPO2 97% ON RA. DENIES PAIN/DISCOMFORT. DISCHARGE PICTURES OBTAINED. NO NEW SKIN CONDITIONS IDENTIFIED. ALL BELONGINGS ACCOUNTED FOR. PATIENT/SPOUSE VERBALIZED FULL UNDERSTANDING OF DISCHARGE TEACHINGS. PATIENT IS ASSITED TO WHEELCHAIR TO LEAVE THE UNIT.
--- NOTE | 2017-03-27 17:10 | NUR ---
MS EVENT ORGANIZER NOTE PATIENT LEFT THE UNIT VIA WHEELCHAIR IS STABLE CONDITION ACCOMPANIED BY THE RN.
== END 2017-03-27 17:29 | disposition home or self-care (01) | DRG 280 ==
LOC: ER 18:23 → TELE 20:48 → MED 03-27 06:30
PROVIDERS: ADMIT Nurse Practitioner Acute Care; ATTEND Nurse Practitioner Acute Care
DX: I21.A1 Myocardial infarction type 2 (principal); I50.23 Acute on chronic systolic (congestive) heart failure; R06.03 Acute respiratory distress; J44.1 Chronic obstructive pulmonary disease with (acute) exacerbation; M06.9 Rheumatoid arthritis, unspecified; I11.0 Hypertensive heart disease with heart failure; E78.5 Hyperlipidemia, unspecified; I25.2 Old myocardial infarction; Z95.2 Presence of prosthetic heart valve; Z88.0 Allergy status to penicillin; J40 Bronchitis, not specified as acute or chronic
CPT/HCPCS: 36415; 71010-TC; 80048-TC; 80053-TC; 80061-TC; 80076-TC; 83605-TC; 83735-TC; 83880; 84100-TC; 84484-TC; 85025-TC; 85730-TC; 87040-TC; 87081-TC; 87400; A4606; J1940; J2920; J8610; Z7610

== ENCOUNTER 2018-01-28 07:40 | Inpatient (IN) | payer MEDICARE ==
[~2018-01-28] VITALS: Ht 165.1 cm; Wt 47.2 kg
--- NOTE | 2018-01-28 07:50 | NUR ---
BIB RA FROM HOME; PER PT, "WENT TO USE RESTROOM, BECAME WEAK FELL DOWN. PT AAOX3. NOTED HYPOXIC, PLACE ON O2 VIA NC. VSS. SEEN BY FOR EVAL. IV ACCESS STARTED, BLOOD DRAWN FOR LABS. SAFETY AND COMFORT MEASURES PROVIDED. WILL MONITOR.
[2018-01-28] MEDS ORDERED: IV NS 0.9% 1,000 ML BAG IV ONE (08:00)
[2018-01-28 08:03] LABS: HEMATOCRIT 33 % (33-45); HEMOGLOBIN 10.7 g/dL (11.5-14.8); LYMPHOCYTES # (AUTO) 0.7 /CMM (0.8-4.8); LYMPHOCYTES % (AUTO) 9.1 % (20.0-44.0); MEAN CORPUSCULAR HEMOGLOBIN 34 PG (26.0-33.0); MEAN CORPUSCULAR HGB CONC 33 g/dl (31.0-36.0); MEAN CORPUSCULAR VOLUME 103 fL (82-100); MONOCYTES # (AUTO) 0.6 /CMM (0.1-1.30); MONOCYTES % (AUTO) 8.5 % (2.0-12.0); NEUTROPHILS # (AUTO) 6.1 /CMM (1.8-8.9); NEUTROPHILS % (AUTO) 82.4 % (43.0-81.0); PLATELET COUNT (AUTO) 132 /CMM (150-450); RDW COEFFICIENT OF VARIATION 15.2 (11.5-15.0); RED BLOOD CELL COUNT(AUTO) 3.18 MIL/uL (4.0-5.2); WHITE BLOOD COUNT (AUTO) 7.4 K/uL (4.3-11.0)
[2018-01-28 08:13] LABS: CALCIUM, SERUM 8.6 mg/dL (8.5-10.1); CARBON DIOXIDE 28 mmol/L (21-32); CHLORIDE 97 mmol/L (98-107); CREATININE 1.1 mg/dL (0.6-1.3); GLUCOSE 163 mg/dL (74-106); POTASSIUM 4.9 mmol/L (3.5-5.1); SODIUM SERUM 133 mmol/L (136-145); UREA NITROGEN, BLOOD 28 mg/dL (7-18)
--- NOTE | 2018-01-28 08:20 | NUR ---
RT AT FOR ABG.
[2018-01-28 08:22] LABS: TROPONIN I 0.162 ng/mL (0.00-0.056)
--- NOTE | 2018-01-28 08:23 | NUR ---
URINE SAMPLE OBTAINED VIA CATHETER, SAMPLE SENT.
[2018-01-28 08:26] LABS: ABG BASE EXCESS -1.4 mmol/L; ABG OXYGEN SATURATION 91.5 % (92.0-98.5); ABG PCO2 40.9 mmHg (35.0-45.0); ABG PO2 69.6 mmHg (75.0-100.0); AaDO2 110.7 mmHg; COHb 0.9 % (0.5-1.5); MetHb 0.3 % (0.0-1.5); O2Hb 90.4 % (94.0-97.0); SITE, ABG Left Radial; VENT MODE, BG 3LNC
[2018-01-28 08:43] LABS: APPEARANCE,URINE SL CLOUDY (CLEAR); BILIRUBIN,URINE NEGATIVE (NEGATIVE); BLOOD, URINE 3+ Ery/uL (NEGATIVE); COLOR,URINE YELLOW (YELLOW); KETONES,URINE NEGATIVE (NEGATIVE); LEUKOCYTE ESTERASE ,URINE NEGATIVE (NEGATIVE); NITRITE, URINE NEGATIVE (NEGATIVE); PH,URINE 5.5 (5.0-8.0); PROTEIN,URINE TRACE mg/dl (NEGATIVE); UGLUCOSE NEGATIVE (NEGATIVE); UROBILINOGEN,URINE 0.2 EU/dL (0.2)
[2018-01-28 08:55] LABS: BACTERIA,URINE Few /HPF (None Seen); MUCUS,URINE Few /LPF (None Seen); RBC,URINE 21-50 /HPF (0-2); URINE AMORPHOUS URATE Few /HPF (None Seen); WBC,URINE 0-2 /HPF (0-3)
[2018-01-28] MEDS ORDERED: IV NS 0.9% 250 ML IV ONE (09:05)
[2018-01-28] MEDS ORDERED: CT SWABBABLE VALVE TRANS SET 1 EA INFUS.SET MC ONE (09:05)
[2018-01-28] MEDS ORDERED: IOHEXOL-350 100 ML VIAL IV ONE (09:05)
--- NOTE | 2018-01-28 09:49 | NUR ---
TELE ROOM 116-1.
--- NOTE | 2018-01-28 09:55 | NUR ---
Paged EPIC acetone recovery worker is Derick Bhakta.
--- NOTE | 2018-01-28 10:27 | NUR ---
Called [facility] awaiting for Yony to call us back.
[2018-01-28] MEDS ORDERED: Z GUARD REMEDY 2 OZ OINT TP PRN (11:30)
[2018-01-28] MEDS ORDERED: ACETAMINOPHEN 325 MG TABLET PO PRN (11:30)
[2018-01-28] MEDS ORDERED: MAGNESIUM HYDROXIDE 30 ML UDC PO PRN (11:30)
[2018-01-28] MEDS ORDERED: HYDROCODONE/APAP 5/325MG 1 EACH TABLET PO PRN (11:30)
[2018-01-28] MEDS ORDERED: MAG HYDROX/AL HYDROX/SIMETH 30 ML UDC PO PRN (11:30)
[2018-01-28] MEDS ORDERED: ONDANSETRON HCL/PF 4 MG/2 ML VIAL IVP PRN (11:30)
--- NOTE | 2018-01-28 11:30 | NUR ---
RN NOTE RECEIVED PT ON BED, WEAK, AOX3, HARD OF HEARING, WITH AT BEDSIDE, DENIES ANY CHEST PAIN, OR ANY OTHER PAIN, ON TELEMONITOR SR WITH BBB, 78, REDNESS IN SACRUM WITH EXCORIATION, IV IN PLACE, INTACT, SAFETY MEASURES IMPLEMENTED, CALL LIGHT WITHIN REACH. WILL MONITOR.
[2018-01-28 11:45] VITALS: BP 136/66
[2018-01-28 12:00] VITALS: BP 136/66
[2018-01-28] MEDS ORDERED: LEFLUNOMIDE 20 MG TABLET PO SCH (12:00)
[2018-01-28 12:08] LABS: ALBUMIN 3.1 g/dL (3.4-5.0)
[2018-01-28 12:10] LABS: PREALBUMIN 13.3 MG/DL (18.0-35.7)
[2018-01-28 16:00] VITALS: BP 134/81
[2018-01-28] MEDS: NORTRIPTYLINE HCL 25 MG CAPSULE PO SCH (17:47)
[2018-01-28] MEDS: FUROSEMIDE 40 MG/4 ML VIAL IV SCH ×2 (17:47→20:09)
[2018-01-28 20:00] VITALS: BP 129/73
[2018-01-28] MEDS: GABAPENTIN 300 MG CAPSULE PO SCH (21:22)
[2018-01-29] VITALS: BP 158/90
[2018-01-29] MEDS: FUROSEMIDE 40 MG/4 ML VIAL IV SCH (00:20)
[2018-01-29 04:00] VITALS: BP 128/84
[2018-01-29 06:27] LABS: EOSINOPHILS % (AUTO) 0.1 % (0.0-6.0); HEMATOCRIT 33 % (33-45); HEMOGLOBIN 11.1 g/dL (11.5-14.8); LYMPHOCYTES # (AUTO) 0.2 /CMM (0.8-4.8); LYMPHOCYTES % (AUTO) 1.7 % (20.0-44.0); MEAN CORPUSCULAR HEMOGLOBIN 35 PG (26.0-33.0); MEAN CORPUSCULAR HGB CONC 34 g/dl (31.0-36.0); MEAN CORPUSCULAR VOLUME 103 fL (82-100); MONOCYTES # (AUTO) 0.9 /CMM (0.1-1.30); MONOCYTES % (AUTO) 8.9 % (2.0-12.0); NEUTROPHILS # (AUTO) 9.3 /CMM (1.8-8.9); NEUTROPHILS % (AUTO) 89.3 % (43.0-81.0); PLATELET COUNT (AUTO) 140 /CMM (150-450); RDW COEFFICIENT OF VARIATION 15.6 (11.5-15.0); RED BLOOD CELL COUNT(AUTO) 3.19 MIL/uL (4.0-5.2); WHITE BLOOD COUNT (AUTO) 10.4 K/uL (4.3-11.0)
[2018-01-29 06:33] LABS: CALCIUM, SERUM 8.2 mg/dL (8.5-10.1); CARBON DIOXIDE 30 mmol/L (21-32); CHLORIDE 97 mmol/L (98-107); GLUCOSE 101 mg/dL (74-106); MAGNESIUM 1.5 mg/dL (1.8-2.4); POTASSIUM 3.4 mmol/L (3.5-5.1); SODIUM SERUM 136 mmol/L (136-145); UREA NITROGEN, BLOOD 24 mg/dL (7-18)
[2018-01-29 06:43] LABS: CHOLESTEROL 144 mg/dL (<200); HDL CHOLESTEROL 54 mg/dL (40-60); LDL 79 mg/dL (0-99); THYROID STIMULATING HORMONE 0.679 uIU/mL (0.358-3.74); TRIGLYCERIDES 73 mg/dL (30-150)
--- NOTE | 2018-01-29 06:45 | NUR ---
RN NOTE NO ACUTE CHANGES ON MY SHIFT, PATIENT IS STABLE, TURNED AND REPOSITION Q 2 HOURS, BED ALARM IS ON AND CHECKED PRIOR, ALL SAFETY MEASURES TAKEN, WILL ENDORSE TO AM SHIFT TO CONTINUE CARE
--- NOTE | 2018-01-29 07:48 | NUR ---
INTERVENTIONAL TECHNOLOGIST NOTE PATIENT IN BED , ALL NEEDS ATTENDED , ON 3L NC NO SOB NOTED , AT THIS TIME , RESTING COMFORTABLY IN BED , RT FA HL INTACT ,NO S\S INFECTION NOTED , BED IN LOWEST AND LOCKED POSITION , CALL LIGHT WITHIN REACH ON TELE MONITOR SR WITH BB HR 88 WILL ,CONT TO MONITOR CLOSELY
[2018-01-29 08:00] VITALS: BP 137/89
[2018-01-29] MEDS: predniSONE 5 MG TABLET PO SCH (08:32)
[2018-01-29] MEDS: LEFLUNOMIDE 10 MG TABLET PO SCH (08:32)
[2018-01-29] MEDS: FOLIC ACID 1 MG TABLET PO SCH (08:32)
[2018-01-29] MEDS ORDERED: METHOTREXATE SODIUM (2.5MG) 2.5 MG TABLET PO SCH (09:00)
--- NOTE | 2018-01-29 09:00 | NUR ---
ms rn note consent for rt lower lid obtained ,spoke with
[2018-01-29] MEDS ORDERED: BUMETANIDE INJ 8 MG in IV NS 0.9% 48 ML IV ONE (09:30)
--- NOTE | 2018-01-29 09:41 | NUR ---
ms rn note rt lower lid biopsy done by dr hopkins surgeon, specimen sent to lab
[2018-01-29] MEDS ORDERED: LIDOCAINE 2%-EPI 1:100,000 30 ML VIAL TP ONE (10:00)
[2018-01-29] MEDS: POTASSIUM CHLORIDE 20 MEQ TAB.PRT.SR PO SCH ×2 (10:13→11:12)
[2018-01-29] MEDS: Magnesium 1GM/D5W 100ML PREMIX 100 ML IV SCH ×2 (10:13→11:11)
--- NOTE | 2018-01-29 11:08 | NUR ---
MS RN NOTE PER DR MYERS OBTAINED CONSENT FOR THORACENTESIS GUIDED US RT LUNG , SPOKE WITH
[2018-01-29 11:19] LABS: INR 1.08 (0.87-1.13)
[2018-01-29 12:00] VITALS: BP 99/53
--- NOTE | 2018-01-29 12:49 | NUR ---
MS RN NOTE PER PELEG THORACENTESIS DONE, REMOVED 1500 ML OF YELLOW COLOR URINE, STAT CHEST XRAY ORDERED, WILL F\U/ ON BUMEX DRIP ORDERED BP99/55 DMITY RN REGISTERED PHLEBOTOMIST PART TIME AWARE .WILL MONITOR CLOSELY BP
--- NOTE | 2018-01-29 13:38 | NUR ---
MS RN NOTE ON BUMEX DRIP ORDERED BP 117/64
--- NOTE | 2018-01-29 15:23 | NUR ---
MS RN NOTE AT BEDSIDE C\O THAT PATIENT HAS POOR APATITE. ORDERED DIETARY CONSULT AND PER DIETARY SWALLOW EVAL ORDERED, WILL U
--- NOTE | 2018-01-29 15:27 | NUR ---
MS RN NOTE PER DIETARY OK TO ORDER ENSURE AND MVI , ALSO SEEN BT PT ,ABLE TO AMBULATE WITH WALKER FAMILY AT BEDSIDE
[2018-01-29 16:00] VITALS: BP_SYST 132; BP_DIAS 64; BP_DIAS 67
[2018-01-29] MEDS ORDERED: ABAT50SY SQ (16:01)
[2018-01-29] MEDS ORDERED: DONE5TAB34 PO (16:01)
[2018-01-29] MEDS: NORTRIPTYLINE HCL 25 MG CAPSULE PO SCH (17:31)
[2018-01-29] MEDS: ENSURE CLEAR 237 ML LIQUID (MIX BERRY) PO SCH (17:38)
[2018-01-29] MEDS ORDERED: IVABRADINE PO SCH (18:00)
--- NOTE | 2018-01-29 18:15 | NUR ---
MS RN NOTE CONT ON BUMEX DRIP ORDERED ABLE TO URINATE ,WELL KEEP CLEAN DRY
--- NOTE | 2018-01-29 19:30 | NUR ---
RN OPENING NOTES: RECEIVED PATIENT ON BED ASLEEP BUT AROUSABLE. ALERT TO SELF. ON O2 THERAPY VIA NC AT 3LPM TOLERATED WELL, NOT IN APPARENT DISTRESS AT THIS TIME. IV INTACT ON RIGHT ARM, BUMEX ONGOING. SAFETY MEASURES ENSURED. CALL LIGHT WITHIN REACH. CONTINUOUSLY MONITORED.
[2018-01-29 20:00] VITALS: BP 109/61
[2018-01-29] MEDS: GABAPENTIN 300 MG CAPSULE PO SCH (21:14)
[2018-01-29] MEDS: DONEPEZIL 5 MG TABLET PO SCH (21:14)
[2018-01-30] VITALS (7 sets, daily range): BP systolic 98–150; BP diastolic 48–72
[2018-01-30 06:16] LABS: EOSINOPHILS % (AUTO) 0.2 % (0.0-6.0); HEMATOCRIT 37 % (33-45); HEMOGLOBIN 12.1 g/dL (11.5-14.8); LYMPHOCYTES # (AUTO) 0.9 /CMM (0.8-4.8); LYMPHOCYTES % (AUTO) 8.9 % (20.0-44.0); MEAN CORPUSCULAR HEMOGLOBIN 34 PG (26.0-33.0); MEAN CORPUSCULAR HGB CONC 33 g/dl (31.0-36.0); MEAN CORPUSCULAR VOLUME 103 fL (82-100); MONOCYTES # (AUTO) 0.9 /CMM (0.1-1.30); MONOCYTES % (AUTO) 8.9 % (2.0-12.0); NEUTROPHILS # (AUTO) 8.6 /CMM (1.8-8.9); PLATELET COUNT (AUTO) 145 /CMM (150-450); RDW COEFFICIENT OF VARIATION 15.1 (11.5-15.0); RED BLOOD CELL COUNT(AUTO) 3.55 MIL/uL (4.0-5.2); WHITE BLOOD COUNT (AUTO) 10.5 K/uL (4.3-11.0)
--- NOTE | 2018-01-30 06:52 | NUR ---
RN CLOSING NOTES: PATIENT NOT IN APPARENT DISTRESS. KEPT ON O2 THERAPY. NO ACUTE CHANGES OVERNIGHT. SAFETY MEASURES ENSURED AT ALL TIMES. SKIN CARE RENDERED. ASPIRATION PRECAUTIONS ENSURED. CONTINUOUSLY MONITORED. TO ENDORSE TO AM SHIFT RN.
[2018-01-30 07:04] LABS: ALANINE AMINOTRANSFERASE 19 U/L (12-78); ALBUMIN 2.8 g/dL (3.4-5.0); ALKALINE PHOSPHATASE 34 U/L (46-116); ASPARTATE AMINOTRANSFERASE 19 U/L (15-37); BILIRUBIN,TOTAL 0.6 mg/dL (0.2-1.0); CALCIUM, SERUM 8.1 mg/dL (8.5-10.1); CARBON DIOXIDE 35 mmol/L (21-32); CHLORIDE 97 mmol/L (98-107); CREATININE 1.1 mg/dL (0.6-1.3); GLUCOSE 100 mg/dL (74-106); MAGNESIUM 1.9 mg/dL (1.8-2.4); POTASSIUM 3.4 mmol/L (3.5-5.1); SODIUM SERUM 137 mmol/L (136-145); TOTAL PROTEIN, SERUM 6.8 g/dL (6.4-8.2); UREA NITROGEN, BLOOD 27 mg/dL (7-18)
--- NOTE | 2018-01-30 08:00 | NUR ---
T/D NURSE NOTES RECEIVED PATIENT ON BED, ALERT AND ORIENTED X3, HARD OF HEARING, BREATHING UNLABORED, WITH NASAL CANNULA AT 3LPM, DENIES PAIN OF ANY KIND, HEART RATE AT85, IV IN PLACE AND INTACT, WEAK LOOKING, SAFETY MAINTAINED, CALL LIGHT WITHIN REACH. WILL CONTINUE TO MONITOR.
[2018-01-30] MEDS: FOLIC ACID 1 MG TABLET PO SCH (08:33)
[2018-01-30] MEDS: predniSONE 5 MG TABLET PO SCH (08:33)
[2018-01-30] MEDS: IVABRADINE PO SCH ×2 (08:34→17:10)
[2018-01-30] MEDS: LEFLUNOMIDE 10 MG TABLET PO SCH (08:34)
[2018-01-30] MEDS: ENSURE CLEAR 237 ML LIQUID (MIX BERRY) PO SCH ×3 (08:58→17:09)
[2018-01-30] MEDS ORDERED: MULTIVITAMINS,THERAGRAN 1 UDTAB TABLET PO SCH (09:00)
[2018-01-30] MEDS ORDERED: FUROSEMIDE 40 MG TABLET PO SCH (09:00)
--- NOTE | 2018-01-30 10:30 | NUR ---
T/D NURSE NOTES SEEN AND EXAMINED BY DR MYERS, WITH ORDER FOR LEFT LUNG THORACENTESIS AND FLUID ANALYSIS. ORDER NOTED AND CARRIED OUT. CONSENT OBTAINED FROM GREG YOUSIF.
--- NOTE | 2018-01-30 10:45 | NUR ---
MS RN NOTE: CALLED AND SPOKE WITH GREG YOUSIF, /DPOA OF THE PATIENT REGARDING THE ULTRASOUND GUIDED THORACENTESIS OF THE (L) LUNG TODAY PER DR. MYERS. ACCORDING TO GREG, HE IS FINE WITH EVERYTHING THAT THE DOCTOR RECOMMENDED IN ORDER TO TREAT HIS . TELEPHONE CONSENT WAS VERIFIED OVER THE PHONE WITH CHARGE NURSE JUSTYNA BLANCHARD. JULIENNE POSTDOCTORAL SCIENTIST WAS AWARE ABOUT THE ORDER.
[2018-01-30] MEDS ORDERED: POTASSIUM CHLORIDE 20 MEQ TAB.PRT.SR PO SCH (12:30)
[2018-01-30] MEDS ORDERED: LIDOCAINE HCL/PF 1% 30 ML SDV ONE (12:40)
--- NOTE | 2018-01-30 13:30 | NUR ---
T/D NURSE NOTES LEFT LUNG THORACENTESIS DONE, 700CC DRAINAGE OBTAINED, PATIENT ABLE TO TOLERATE THE PROCEDURE WELL. INITIAL VITAL SIGNS FOLLOWS BP AT 113/60MMHG, HR AT 81, RR AT 16, WILL CONTINUE TO MONITOR THE PATIENT.
[2018-01-30] MEDS: NORTRIPTYLINE HCL 25 MG CAPSULE PO SCH (17:57)
--- NOTE | 2018-01-30 19:20 | NUR ---
MS RN NOTE: SPOKE WITH GREG, AND MADE HIM AWARE THAT THE PER INTERNATIONAL MARKETING COORDINATOR'S NOTE THE PATIENT WS ACCEPTED AT [place] ([facility]) AND THERE IS A BED AVAILABLE. HE WAS INFORMED THAT THE DOCTOR HAS NOT DECIDE FOR A DISCHARGE AT THIS TIME AND NEEDS TO CHECK ON THE RESULTS OF THE TESTS THAT WAS DONE FOR HER. PER GREG, HE REQUESTED TO RECEIVE A CALL FROM THE DOCTOR TOMORROW MORNING IN ORDER TO SPEAK DIRECTLY ABOUT THE PATIENT'S CONDITION AND PLANNING FOR DISCHARGE. ENDORSED IT TO PM SHIFT NURSE TO RELAY THE MESSAGE TO THE AM SHIFT NURSE TOMORROW REGARDING THE 'S REQUEST FOR TELEPHONE CALL FROM THE DOCTOR.
--- NOTE | 2018-01-30 19:30 | NUR ---
T/D NURSE NOTES ENDORSED PATIENT TO INCOMING NURSE, SLEEP COMFORTABLY IN BED. S/P LEFT LUNG THORACENTESIS. NO SIGN OF SHORTNESS OF BREATH NOTED AT THIS TIME, SATURATION AT 96%. ON NASAL CANNULA WITH 3 LPM. AT BEDSIDE. CALL LIGHT ON EASY REACH. BED LOW AND LOCKED.
--- NOTE | 2018-01-30 20:00 | NUR ---
TON RN CHELSY RECEIVED PATIENT ON BED, ALERT AND ORIENTED X1, HARD OF HEARING, WITH SOB AND SPO2 OF 84% WITH NASAL CANNULA AT 3LPM, HER RIGHT LING SOUNDS ARE DIMINISHED, CALLED THE RT AND PATIENT WAS PLACED ON NON REBREATHER MASK 15L AND SATURATION WENT UP 89%-90%, MD LOUIS BETTENCOURT AND STAT CHEST XR WAS ORDERED. HEART RATE AT70"S,B/P 98/51, RR 20. LEFT LUNG THORACENTESIS WAS DONE TODAY AND 700ML FLUIDS WERE OUT. IV IN PLACE AND INTACT, LOOKING WEAK ,PALE AND LETHARGIC. SAFETY MAINTAINED, CALL LIGHT WITHIN REACH. WILL CONTINUE TO MONITOR.
[2018-01-30] MEDS: GABAPENTIN 300 MG CAPSULE PO SCH (22:26)
[2018-01-30] MEDS: DONEPEZIL 5 MG TABLET PO SCH (22:26)
--- NOTE | 2018-01-30 23:00 | NUR ---
RN NOTES PATIENT'S SPO2 IS 80'S ON NON REBREATHER MASK 15LO2. DR. PRICILLA BRADFORD IN NOTIFIED ABOUT CHANGE OF PATIENT'S CONDITION. PATIENT IS DNR/DNI. NEW ORDER OF BIPAP MACHINE IN PLACE AND PATIENT IS PLACED ON BIPAP MACHINE. HR 81, B/P 102/60 . PATIENT'S GREG WAS INFORMED ABOUT PATIENT'S CONDITION CHANGE PHONE # [phone].
--- NOTE | 2018-01-30 23:08 | NUR ---
6924 DR. BRADFORD WAS NOTIFIED THAT PATIENT IS DESATURATING TO 86% ON 15LPM VIA NON REBREATHER MASK, ALSO NOTIFIED HIM OF CXR RESULT WITH ORDER TO PUT PATIENT ON BIPAP, ORDER NOTED AND CARRIED OUT.
--- NOTE | 2018-01-30 23:35 | NUR ---
0778 SPOKE WITH PATIENT'S DAUGHTER CORRINA AND NOTIFIED HER OF PATIENT'S CHANGE IN CONDITION, ALSO TOLD HER THAT PT.'S HAS BEEN NOTIFIED OF PT.'S CONDITION.
--- NOTE | 2018-01-30 23:58 | NUR ---
RN NOTES PATIENT HAS NO PULSE PER CAROTID, NO RISE AND FALL OF THE CHEST, DR BRADFORD AWARE.
--- NOTE | 2018-01-31 00:04 | NUR ---
RN NOTES PATIENT AT 2351, 01/30/2018.CHARGE NURSE AND DR. PRICILLA BRADFORD NOTIFIED, FAMILY( ) NOTIFIED.
--- NOTE | 2018-01-31 00:22 | NUR ---
RN NOTES CALLED [facility]. TALKED TO YEVGENIY AND TOLD HER THAT PATIENT AND REFERRAL NUMBER WAS OBTAINED [phone].
--- NOTE | 2018-01-31 00:28 | NUR ---
RN NOTES PATIENT'S POSTMORTEM CARE WAS PROVIDED AT 0030 01/31/2018.
--- NOTE | 2018-01-31 00:45 | NUR ---
RN NOTES SPOKE TO [facility] , THEY SAID THAT PATIENT IS NOT AN ORGAN DONOR .
--- NOTE | 2018-01-31 01:39 | NUR ---
RN NOTES PATIENT WAS TAKEN TO [facility] BY HOSPITAL SECURITY, JUSTYNA ROBERSON AND GERTRUDE WHITE AT 0130 01/31/2018.
== END 2018-01-31 01:30 | disposition expired ==
LOC: ER 07:42 → TELE1 10:26 → MEDSG1 01-29 09:39
PROVIDERS: ADMIT Nurse Practitioner Acute Care; ATTEND Nurse Practitioner Acute Care
PROC: 0HB1XZX Excision of Face Skin, External Approach, Diagnostic (ICD-10-PCS; principal; 2018-01-29)
PROC: 0W993ZZ Drainage of Right Pleural Cavity, Percutaneous Approach (ICD-10-PCS; 2018-01-29)
PROC: 0W9B3ZZ Drainage of Left Pleural Cavity, Percutaneous Approach (ICD-10-PCS; 2018-01-30)
DX: I21.A1 Myocardial infarction type 2 (principal); N17.0 Acute kidney failure with tubular necrosis; J96.01 Acute respiratory failure with hypoxia; I50.23 Acute on chronic systolic (congestive) heart failure; I13.0 Hypertensive heart and chronic kidney disease with heart failure and stage 1 through stage 4 chronic kidney disease, or unspecified chronic kidney disease; E87.1 Hypo-osmolality and hyponatremia; E46 Unspecified protein-calorie malnutrition; J98.11 Atelectasis; J90 Pleural effusion, not elsewhere classified; L97.409 Non-pressure chronic ulcer of unspecified heel and midfoot with unspecified severity; I42.9 Cardiomyopathy, unspecified; D69.6 Thrombocytopenia, unspecified; I11.0 Hypertensive heart disease with heart failure; E83.42 Hypomagnesemia; Z95.2 Presence of prosthetic heart valve; N18.3 Chronic kidney disease, stage 3 (moderate); Z90.710 Acquired absence of both cervix and uterus; M06.9 Rheumatoid arthritis, unspecified; Z88.0 Allergy status to penicillin; Z88.8 Allergy status to other drugs, medicaments and biological substances; Z79.82 Long term (current) use of aspirin; I25.2 Old myocardial infarction; Z79.899 Other long term (current) drug therapy; R53.1 Weakness; T38.0X5A Adverse effect of glucocorticoids and synthetic analogues, initial encounter; Y92.009 Unspecified place in unspecified non-institutional (private) residence as the place of occurrence of the external cause; D53.9 Nutritional anemia, unspecified; L89.621 Pressure ulcer of left heel, stage 1; L89.611 Pressure ulcer of right heel, stage 1; I73.9 Peripheral vascular disease, unspecified; I73.00 Raynaud's syndrome without gangrene; D69.2 Other nonthrombocytopenic purpura; F03.90 Unspecified dementia, unspecified severity, without behavioral disturbance, psychotic disturbance, mood disturbance, and anxiety; Z66 Do not resuscitate
CPT/HCPCS: 36415; 36600; 71045-TC; 76942-TC; 80048-TC; 80053-TC; 80061-TC; 81000-TC; 82040-TC; 82533; 82962-TC; 83735-TC; 84100-TC; 84134-TC; 84443-TC; 84484-TC; 85025-TC; 85610-TC; 87070-TC; 87075-TC; 87081-TC; 87102-TC; 88305-TC; 89051-TC; 92611-TC; 93307-TC; 97110-TC; 97112-TC; A4216; A4606; A6402; A6403; J1940; J3475; J3490; J7030; J7050; J7512; J8610; Q9967; Z7610